=== PATIENT | female | born 1970 | race Caucasian/White ===

== ENCOUNTER 2018-10-28 13:51 | Outpatient (CLI) | payer MEDICARE, MEDICAID | END 2018-10-28 23:59 | disposition home or self-care (01) | LOC: CFH 13:51 | PROVIDERS: ATTEND Nurse Practitioner Family | DX: M48.02 Spinal stenosis, cervical region (principal); M25.78 Osteophyte, vertebrae | CPT/HCPCS: 72141 ==

== ENCOUNTER 2018-11-01 09:37 | Emergency (ER) | payer MEDICARE, MEDICAID ==
[~2018-11-01] VITALS: Ht 160 cm; Wt 76.0 kg
[2018-11-01 12:57] VITALS: BP 106/59
== END 2018-11-01 13:21 | disposition home or self-care (01) ==
LOC: ED 13:09
DX: E86.0 Dehydration (principal); R11.2 Nausea with vomiting, unspecified; G44.211 Episodic tension-type headache, intractable
CPT/HCPCS: 96360; 96372; 99283; J2550; J7030

== ENCOUNTER 2020-01-08 10:53 | Outpatient (CLI) | payer MEDICARE, MEDICAID | END 2020-01-08 23:59 | disposition home or self-care (01) | LOC: CFH 10:53 | PROVIDERS: ATTEND Internal Medicine | DX: Z02.9 Encounter for administrative examinations, unspecified (principal) ==